=== PATIENT | female | born 1930 | race Caucasian/White ===

== ENCOUNTER 2016-08-01 13:11 | Inpatient (IN) | payer OTHER ==
[2016-08-01] MEDS ORDERED: ALBUTEROL NEB INH ONE (13:24)
[2016-08-01] MEDS ORDERED: NS 500 ML IV ONE (13:25)
--- NOTE | 2016-08-01 13:28 | PROVIDER DOCUMENTATION ---
HPI-General Adult - General Source: patient, EMS - History of Present Illness -Gen Adult Nature of Presenting Problems: Pt is 86 y/o F presents to the ED with cough and weakness. Pt states being recently diagnosed with flu. Pt states she is in a care home for rehab. EMS states Pt's family wanted Pt sent to ED due to no improvement after two days of meds for flu and Pt's family felt like she was not receiving adequate breathing treatments at care home. Location of Pain/Injury: reports: generalized Pain Radiation: reports: no radiation Quality of Pain: reports: aching Severity: reports: mild Onset/Duration: reports: 2 days ago Timing: reports: still present Context/Activities at Onset: reports: light activity Modifying Factors: improves with: nothing Associated Symptoms: reports: cough, weakness. denies: anxiety, arm pain, back/ neck pain, chest pain, constipation, diaphoresis, diarrhea, dizziness, EENT symptoms, fatigue, fever/chills, genitourinary problems, headaches, heartburn, joint pain, loss of appetite, malaise, muscle aches, sinus congestion/drainage, nausea, rash, seizure, shortness of breath, sensory/motor loss, pain with inspiration, swelling/mass in abdomen, syncope, vomiting, trouble walking Similar Symptoms Previously?: Yes Recently seen or treated by another doctor?: Yes <Stella Lucio - Last Filed: 08/01/16 16:45> <Brennon Blackwood Jr - Last Filed: 08/15/16 04:30> - General Stated Complaint: INFLUENZA Time Seen by Provider: 08/01/16 13:15 Allergies/Adverse Reactions: Patient Allergies Allergy/AdvReac Type Severity Reaction Status Date / Time aspirin Allergy Severe arrythmia Verified 08/01/16 13:25 clopidogrel bisulfate * Allergy Severe HIVES Verified 08/01/16 13:25 [From Plavix] pregabalin [From Lyrica] Allergy Severe confusion Verified 08/01/16 13:25 ciprofloxacin [From Cipro] Allergy Intermediate bad dreams Verified 08/01/16 13: 25 ciprofloxacin HCl * Allergy Intermediate bad dreams Verified 08/01/16 13:25 [From Cipro] hydromorphone HCl * Allergy Intermediate VOMITING Verified 08/01/16 13:25 [From Dilaudid] meperidine HCl * Allergy Intermediate VOMITING Verified 08/01/16 13:25 [From Demerol] nitrofurantoin Allergy Intermediate ITCHING Verified 08/01/16 13:25 [From Macrobid] nitrofurantoin Allergy Intermediate ITCHING Verified 08/01/16 13:25 macrocrystalline * [From Macrobid] acetaminophen [From Lortab] AdvReac NAUSEA Verified 08/01/16 13:25 hydrocodone bitartrate * AdvReac NAUSEA Verified 08/01/16 13:25 [From Lortab] latex AdvReac RASH Verified 08/01/16 13:25 Home Medications: Home Medication List Medication Instructions Recorded Confirmed Last Taken Type Benazepril HCl [Lotensin] 40 mg PO HS 04/05/13 08/01/16 07/08/16 20:00 History Donepezil [Aricept] 5 mg PO QAM 04/05/13 08/01/16 07/08/16 10:00 History Levothyroxine [Synthroid] 88 microgm PO DAILY 04/05/13 08/01/16 07/08/16 10:00 History Metformin [Glucophage] 500 mg PO BID CC 04/05/13 08/01/16 07/08/16 20:00 History Quetiapine [Seroquel] 50 mg PO QHS 04/05/13 08/01/16 07/08/16 20:00 History Sertraline HCl [Zoloft] 100 mg PO DAILY 04/05/13 08/01/16 07/08/16 10:00 History Oxybutynin [Ditropan] 5 mg PO BID 02/23/14 08/01/16 07/08/16 20:00 History Carvedilol 3.125 mg PO BID 06/14/15 08/01/16 07/08/16 20:00 History Cholecalciferol (Vitamin D3) 2,000 unit PO HS 06/14/15 08/01/16 07/08/16 20:00 History [Vitamin D3] Vit A/C/E AC/Znox/Cupric Oxide 1 each PO DAILY 09/26/15 08/01/16 07/08/16 10:00 History [Eye Vitamin-Minerals Tablet] Albuterol Sulfate Inhaler 2 puff INH [id number] PRN #1 inhaler 08/10/16 Unknown Rx [Ventolin Hfa] Amlodipine [Norvasc] 10 mg PO DAILY #0 tablet 08/10/16 Unknown Rx Review of Systems - Adult - REVIEW OF SYSTEMS - ADULT Constitutional: denies: chills, fever Eyes: denies: blurred vision, double vision Ears, Nose, Mouth & Throat: denies: ear pain, nose pain, throat pain Cardiovascular: reports: irregular heart rate (tamela). denies: chest pain, heart murmur Respiratory: reports: cough, wheezing. denies: shortness of breath Gastrointestinal: denies: abdominal pain, diarrhea, nausea, vomiting Genitourinary: denies: dysuria, hematuria Musculoskeletal: denies: bone pain, joint pain, neck pain Integumentary: denies: hives, itching Neurological: denies: dizziness/vertigo, headache/migraines Psychiatric: reports: no symptoms reported Endocrine: reports: no symptoms reported Hematologic/Lymphatic: reports: no symptoms reported Allergic/Immunologic: reports: no symptoms reported All Other Systems: Reviewed and Negative <Stella Lucio - Last Filed: 08/01/16 16:45> Past History - Adult - PAST MEDICAL HISTORY-ADULT Review of Records: reports: Nursing Assessment Review, Medications Reviewed, Social history reviewed & non-contributory. Major Childhood Illnesses: reports: denies history Cardiovascular: reports: HTN (controlled with meds x40 yrs), hyperlipidemia Respiratory: reports: denies history Gastrointestinal: reports: GERD Obstetrical/Gynecological: reports: denies history Genitourinary: reports: denies history Musculoskeletal: reports: denies history Neurological: reports: dementia Endocrine/Immune: reports: Diabetes (diabetic neuropathy), thyroid disorder ( hypo) Other Conditions: reports: denies history - PRIOR SURGERIES/PROCEDURES Surgical/Procedure History: reports: hysterectomy, other (interstim implant, breast sx) - IMMUNIZATION STATUS Childhood Immunizations: See Nurse Assessment Flu Vaccine: See Nurse Assessment - FAMILY HISTORY Family History: reviewed, not pertinent - SOCIAL HISTORY Smoking: denies Substance Use: denies Living Situation: care facility (care home for rehab) <Stella Lucio - Last Filed: 08/01/16 16:45> Physical Exam-General - PHYSICAL EXAM-ADULT Initial Vital Signs Reviewed: Yes - CONSTITUTIONAL General Appearance: alert, mild distress, slow to respond. negative: appears well (ill in appearance) - EYES Eyes: PERRL/EOMI, pink conjunctivae, fundi clear, no AV nicking - NECK Neck: non-tender, full range of motion, supple, normal inspection - RESPIRATORY Respiratory: chest non-tender, normal breath sounds, no pleuratic chest pain, no respiratory distress, no accessory muscle use, wheezing (expiratory) - CARDIOVASCULAR Cardiovascular: normal peripheral pulses, no edema, no gallop, no JVD, no murmur , bradycardia - GASTROINTESTINAL (ABDOMEN) Abdominal Exam: normal bowel sounds, non tender, soft, no organomegaly, no pulsatile mass - LYMPHATIC Lymphatic: no adenopathy - MUSCULOSKELETAL Back Exam: normal inspection, no CVA tenderness, no vertebral tenderness Extremity: normal range of motion, non-tender, normal inspection, no pedal edema , no calf tenderness - SKIN Integumentary: normal color, normal turgor, warm/dry - NEUROLOGIC 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, grossly normal, no motor/sensory deficits - PSYCHIATRIC Psych/Mental Status: normal thought content, normal thought process, oriented x 3 <Stella Lucio - Last Filed: 08/01/16 16:45> Progress - PLAN OF CARE/RESULTS Progress/Plan/Lab Results: Orders Category Date Time Status 0.9% Sodium Chloride Inj [Ns] 500 ml Med 08/01/16 13:25 Active IV 999 mls/hr Albuterol [Albuterol Neb] Med 08/01/16 13:24 Discontinued 2.5 mg INH NOW ONE Aerosol Treatments Routine Oth 08/01/16 13:24 Active Aerosol Treatments Stat Oth 08/01/16 13:24 Active Vital Signs - 24 hr 08/01/16 13:19 Temperature 97.9 F Pulse Rate 53 L Respiratory 18 Rate Blood Pressure 153/93 O2 Sat by Pulse 97 Oximetry - CONSULTS/PCP/HOSPITALIST Notification #1 *Consult/PCP/Hospitalist*: Dr. Rogers Time Discussed: 16:46 (Dr. Rogers accepted admit ) Reason/Comments: Dr. Blackwood consulted with Dr. Rogers about admit of Pt Consult Disposition: Admit <Stella Lucio - Last Filed: 08/01/16 16:45> - PLAN OF CARE/RESULTS Progress/Plan/Lab Results: Laboratory Tests 08/01/16 08/01/16 08/01/16 16:55 16:55 22:56 WBC 5.18 RBC 4.28 Hgb 11.5 L Hct 34.8 L MCV 81.3 MCH 26.9 L MCHC 33.0 RDW Std Deviation 15.2 H Plt Count 193 MPV 10.1 Immature Gran % (Auto) 0.0 Neut % (Auto) 51.2 Lymph % (Auto) 32.4 [place] % (Auto) 11.0 H Eos % (Auto) 4.4 Baso % (Auto) 1.0 H Immature Gran # (Auto) 0.00 Neut # (Auto) 2.65 Lymph # (Auto) 1.68 [place] # (Auto) 0.57 Eos # (Auto) 0.23 Baso # (Auto) 0.05 Specimen Type Sample Site pH pCO2 pO2 HCO3 Base Excess Oxyhemoglobin ABG O2 Sat (Calculated) ABG O2 Saturation ABG Carboxyhemoglobin ABG Methemoglobin Deniz Test A-a O2 Difference Total Hemoglobin Lactate Liter Flow Blood Gas Modality FiO2 % Sodium 133 L Potassium 3.5 Chloride 93 L Carbon Dioxide 28 Anion Gap 12 BUN 33 H Creatinine 0.9 Estimated GFR/1.73 m2 59 BUN/Creatinine Ratio 37 Glucose 107 H POC Glucose 156 H Calculated Osmolality 274 Calcium 8.8 Total Bilirubin 0.22 AST 14 ALT 11 Alkaline Phosphatase 75 Total Protein 6.2 L Albumin 3.5 Globulin 2.7 Albumin/Globulin Ratio 1.3 08/02/16 08/02/16 08/02/16 05:50 06:35 06:41 WBC 6.08 RBC 3.96 L Hgb 10.9 L Hct 32.6 L MCV 82.3 MCH 27.5 MCHC 33.4 RDW Std Deviation 15.0 H Plt Count 203 MPV 10.6 H Immature Gran % (Auto) 0.3 Neut % (Auto) 55.7 Lymph % (Auto) 28.9 [place] % (Auto) 10.7 H Eos % (Auto) 3.9 Baso % (Auto) 0.5 Immature Gran # (Auto) 0.02 Neut # (Auto) 3.38 Lymph # (Auto) 1.76 [place] # (Auto) 0.65 H Eos # (Auto) 0.24 Baso # (Auto) 0.03 Specimen Type ARTERIAL Sample Site R RADIAL pH 7.45 pCO2 39 pO2 125 H HCO3 27.2 H Base Excess 2.9 Oxyhemoglobin 96.6 ABG O2 Sat (Calculated) 15.0 ABG O2 Saturation 99.5 ABG Carboxyhemoglobin 1.20 ABG Methemoglobin 1.7 H Deniz Test YES A-a O2 Difference 54.0 Total Hemoglobin 10.9 L Lactate 1.10 Liter Flow 3.0 Blood Gas Modality CANNULA FiO2 % 32.0 Sodium Potassium Chloride Carbon Dioxide Anion Gap BUN Creatinine Estimated GFR/1.73 m2 BUN/Creatinine Ratio Glucose POC Glucose 130 H Calculated Osmolality Calcium Total Bilirubin AST ALT Alkaline Phosphatase Total Protein Albumin Globulin Albumin/Globulin Ratio 08/02/16 08/02/16 08/02/16 10:44 15:54 20:41 WBC RBC Hgb Hct MCV MCH MCHC RDW Std Deviation Plt Count MPV Immature Gran % (Auto) Neut % (Auto) Lymph % (Auto) [place] % (Auto) Eos % (Auto) Baso % (Auto) Immature Gran # (Auto) Neut # (Auto) Lymph # (Auto) [place] # (Auto) Eos # (Auto) Baso # (Auto) Specimen Type Sample Site pH pCO2 pO2 HCO3 Base Excess Oxyhemoglobin ABG O2 Sat (Calculated) ABG O2 Saturation ABG Carboxyhemoglobin ABG Methemoglobin Deniz Test A-a O2 Difference Total Hemoglobin Lactate Liter Flow Blood Gas Modality FiO2 % Sodium Potassium Chloride Carbon Dioxide Anion Gap BUN Creatinine Estimated GFR/1.73 m2 BUN/Creatinine Ratio Glucose POC Glucose 146 H 136 H 123 H Calculated Osmolality Calcium Total Bilirubin AST ALT Alkaline Phosphatase Total Protein Albumin Globulin Albumin/Globulin Ratio 08/03/16 08/03/16 08/03/16 06:03 11:16 15:40 WBC RBC Hgb Hct MCV MCH MCHC RDW Std Deviation Plt Count MPV Immature Gran % (Auto) Neut % (Auto) Lymph % (Auto) [place] % (Auto) Eos % (Auto) Baso % (Auto) Immature Gran # (Auto) Neut # (Auto) Lymph # (Auto) [place] # (Auto) Eos # (Auto) Baso # (Auto) Specimen Type Sample Site pH pCO2 pO2 HCO3 Base Excess Oxyhemoglobin ABG O2 Sat (Calculated) ABG O2 Saturation ABG Carboxyhemoglobin ABG Methemoglobin Deniz Test A-a O2 Difference Total Hemoglobin Lactate Liter Flow Blood Gas Modality FiO2 % Sodium Potassium Chloride Carbon Dioxide Anion Gap BUN Creatinine Estimated GFR/1.73 m2 BUN/Creatinine Ratio Glucose POC Glucose 112 H 119 H 134 H Calculated Osmolality Calcium Total Bilirubin AST ALT Alkaline Phosphatase Total Protein Albumin Globulin Albumin/Globulin Ratio 08/03/16 08/03/16 08/04/16 21:01 22:09 05:57 WBC RBC Hgb Hct MCV MCH MCHC RDW Std Deviation Plt Count MPV Immature Gran % (Auto) Neut % (Auto) Lymph % (Auto) [place] % (Auto) Eos % (Auto) Baso % (Auto) Immature Gran # (Auto) Neut # (Auto) Lymph # (Auto) [place] # (Auto) Eos # (Auto) Baso # (Auto) Specimen Type Sample Site pH pCO2 pO2 HCO3 Base Excess Oxyhemoglobin ABG O2 Sat (Calculated) ABG O2 Saturation ABG Carboxyhemoglobin ABG Methemoglobin Deniz Test A-a O2 Difference Total Hemoglobin Lactate Liter Flow Blood Gas Modality FiO2 % Sodium Potassium Chloride Carbon Dioxide Anion Gap BUN Creatinine Estimated GFR/1.73 m2 BUN/Creatinine Ratio Glucose POC Glucose 229 H D 152 H 120 H Calculated Osmolality Calcium Total Bilirubin AST ALT Alkaline Phosphatase Total Protein Albumin Globulin Albumin/Globulin Ratio 08/04/16 08/04/16 08/04/16 11:27 15:39 21:36 WBC RBC Hgb Hct MCV MCH MCHC RDW Std Deviation Plt Count MPV Immature Gran % (Auto) Neut % (Auto) Lymph % (Auto) [place] % (Auto) Eos % (Auto) Baso % (Auto) Immature Gran # (Auto) Neut # (Auto) Lymph # (Auto) [place] # (Auto) Eos # (Auto) Baso # (Auto) Specimen Type Sample Site pH pCO2 pO2 HCO3 Base Excess Oxyhemoglobin ABG O2 Sat (Calculated) ABG O2 Saturation ABG Carboxyhemoglobin ABG Methemoglobin Deniz Test A-a O2 Difference Total Hemoglobin Lactate Liter Flow Blood Gas Modality FiO2 % Sodium Potassium Chloride Carbon Dioxide Anion Gap BUN Creatinine Estimated GFR/1.73 m2 BUN/Creatinine Ratio Glucose POC Glucose 158 H 103 125 H Calculated Osmolality Calcium Total Bilirubin AST ALT Alkaline Phosphatase Total Protein Albumin Globulin Albumin/Globulin Ratio 08/05/16 08/05/16 08/05/16 06:29 11:13 16:23 WBC RBC Hgb Hct MCV MCH MCHC RDW Std Deviation Plt Count MPV Immature Gran % (Auto) Neut % (Auto) Lymph % (Auto) [place] % (Auto) Eos % (Auto) Baso % (Auto) Immature Gran # (Auto) Neut # (Auto) Lymph # (Auto) [place] # (Auto) Eos # (Auto) Baso # (Auto) Specimen Type Sample Site pH pCO2 pO2 HCO3 Base Excess Oxyhemoglobin ABG O2 Sat (Calculated) ABG O2 Saturation ABG Carboxyhemoglobin ABG Methemoglobin Deniz Test A-a O2 Difference Total Hemoglobin Lactate Liter Flow Blood Gas Modality FiO2 % Sodium Potassium Chloride Carbon Dioxide Anion Gap BUN Creatinine Estimated GFR/1.73 m2 BUN/Creatinine Ratio Glucose POC Glucose 111 H 143 H 119 H Calculated Osmolality Calcium Total Bilirubin AST ALT Alkaline Phosphatase Total Protein Albumin Globulin Albumin/Globulin Ratio 08/05/16 08/06/16 08/06/16 20:16 06:24 10:18 WBC RBC Hgb Hct MCV MCH MCHC RDW Std Deviation Plt Count MPV Immature Gran % (Auto) Neut % (Auto) Lymph % (Auto) [place] % (Auto) Eos % (Auto) Baso % (Auto) Immature Gran # (Auto) Neut # (Auto) Lymph # (Auto) [place] # (Auto) Eos # (Auto) Baso # (Auto) Specimen Type Sample Site pH pCO2 pO2 HCO3 Base Excess Oxyhemoglobin ABG O2 Sat (Calculated) ABG O2 Saturation ABG Carboxyhemoglobin ABG Methemoglobin Deniz Test A-a O2 Difference Total Hemoglobin Lactate Liter Flow Blood Gas Modality FiO2 % Sodium Potassium Chloride Carbon Dioxide Anion Gap BUN Creatinine Estimated GFR/1.73 m2 BUN/Creatinine Ratio Glucose POC Glucose 131 H 107 H 123 H Calculated Osmolality Calcium Total Bilirubin AST ALT Alkaline Phosphatase Total Protein Albumin Globulin Albumin/Globulin Ratio 08/06/16 08/06/16 08/07/16 16:03 20:19 05:21 WBC RBC Hgb Hct MCV MCH MCHC RDW Std Deviation Plt Count MPV Immature Gran % (Auto) Neut % (Auto) Lymph % (Auto) [place] % (Auto) Eos % (Auto) Baso % (Auto) Immature Gran # (Auto) Neut # (Auto) Lymph # (Auto) [place] # (Auto) Eos # (Auto) Baso # (Auto) Specimen Type Sample Site pH pCO2 pO2 HCO3 Base Excess Oxyhemoglobin ABG O2 Sat (Calculated) ABG O2 Saturation ABG Carboxyhemoglobin ABG Methemoglobin Deniz Test A-a O2 Difference Total Hemoglobin Lactate Liter Flow Blood Gas Modality FiO2 % Sodium Potassium Chloride Carbon Dioxide Anion Gap BUN Creatinine Estimated GFR/1.73 m2 BUN/Creatinine Ratio Glucose POC Glucose 118 H 151 H 101 Calculated Osmolality Calcium Total Bilirubin AST ALT Alkaline Phosphatase Total Protein Albumin Globulin Albumin/Globulin Ratio 08/07/16 08/07/16 08/07/16 06:17 06:17 10:35 WBC 6.68 RBC 3.93 L Hgb 10.4 L Hct 32.7 L MCV 83.2 MCH 26.5 L MCHC 31.8 L RDW Std Deviation 15.2 H Plt Count 344 MPV 9.6 Immature Gran % (Auto) 1.6 H Neut % (Auto) 54.0 Lymph % (Auto) 27.2 [place] % (Auto) 7.9 Eos % (Auto) 8.7 Baso % (Auto) 0.6 Immature Gran # (Auto) 0.11 H Neut # (Auto) 3.60 Lymph # (Auto) 1.82 [place] # (Auto) 0.53 Eos # (Auto) 0.58 Baso # (Auto) 0.04 Specimen Type Sample Site pH pCO2 pO2 HCO3 Base Excess Oxyhemoglobin ABG O2 Sat (Calculated) ABG O2 Saturation ABG Carboxyhemoglobin ABG Methemoglobin Deniz Test A-a O2 Difference Total Hemoglobin Lactate Liter Flow Blood Gas Modality FiO2 % Sodium 137 Potassium 4.7 Chloride 100 Carbon Dioxide 27 Anion Gap 10 BUN 20 Creatinine 0.8 Estimated GFR/1.73 m2 > 60 BUN/Creatinine Ratio 25 Glucose 103 POC Glucose 133 H Calculated Osmolality 277 Calcium 9.4 Total Bilirubin AST ALT Alkaline Phosphatase Total Protein Albumin Globulin Albumin/Globulin Ratio 08/07/16 08/07/16 08/08/16 15:45 21:21 06:40 WBC RBC Hgb Hct MCV MCH MCHC RDW Std Deviation Plt Count MPV Immature Gran % (Auto) Neut % (Auto) Lymph % (Auto) [place] % (Auto) Eos % (Auto) Baso % (Auto) Immature Gran # (Auto) Neut # (Auto) Lymph # (Auto) [place] # (Auto) Eos # (Auto) Baso # (Auto) Specimen Type Sample Site pH pCO2 pO2 HCO3 Base Excess Oxyhemoglobin ABG O2 Sat (Calculated) ABG O2 Saturation ABG Carboxyhemoglobin ABG Methemoglobin Deniz Test A-a O2 Difference Total Hemoglobin Lactate Liter Flow Blood Gas Modality FiO2 % Sodium Potassium Chloride Carbon Dioxide Anion Gap BUN Creatinine Estimated GFR/1.73 m2 BUN/Creatinine Ratio Glucose POC Glucose 97 105 H 105 H Calculated Osmolality Calcium Total Bilirubin AST ALT Alkaline Phosphatase Total Protein Albumin Globulin Albumin/Globulin Ratio 08/08/16 08/08/16 08/08/16 11:07 16:06 20:38 WBC RBC Hgb Hct MCV MCH MCHC RDW Std Deviation Plt Count MPV Immature Gran % (Auto) Neut % (Auto) Lymph % (Auto) [place] % (Auto) Eos % (Auto) Baso % (Auto) Immature Gran # (Auto) Neut # (Auto) Lymph # (Auto) [place] # (Auto) Eos # (Auto) Baso # (Auto) Specimen Type Sample Site pH pCO2 pO2 HCO3 Base Excess Oxyhemoglobin ABG O2 Sat (Calculated) ABG O2 Saturation ABG Carboxyhemoglobin ABG Methemoglobin Deniz Test A-a O2 Difference Total Hemoglobin Lactate Liter Flow Blood Gas Modality FiO2 % Sodium Potassium Chloride Carbon Dioxide Anion Gap BUN Creatinine Estimated GFR/1.73 m2 BUN/Creatinine Ratio Glucose POC Glucose 94 109 H 116 H Calculated Osmolality Calcium Total Bilirubin AST ALT Alkaline Phosphatase Total Protein Albumin Globulin Albumin/Globulin Ratio 08/09/16 08/09/16 08/09/16 06:22 10:53 16:23 WBC RBC Hgb Hct MCV MCH MCHC RDW Std Deviation Plt Count MPV Immature Gran % (Auto) Neut % (Auto) Lymph % (Auto) [place] % (Auto) Eos % (Auto) Baso % (Auto) Immature Gran # (Auto) Neut # (Auto) Lymph # (Auto) [place] # (Auto) Eos # (Auto) Baso # (Auto) Specimen Type Sample Site pH pCO2 pO2 HCO3 Base Excess Oxyhemoglobin ABG O2 Sat (Calculated) ABG O2 Saturation ABG Carboxyhemoglobin ABG Methemoglobin Deniz Test A-a O2 Difference Total Hemoglobin Lactate Liter Flow Blood Gas Modality FiO2 % Sodium Potassium Chloride Carbon Dioxide Anion Gap BUN Creatinine Estimated GFR/1.73 m2 BUN/Creatinine Ratio Glucose POC Glucose 113 H 156 H 92 Calculated Osmolality Calcium Total Bilirubin AST ALT Alkaline Phosphatase Total Protein Albumin Globulin Albumin/Globulin Ratio 08/09/16 08/10/16 08/10/16 21:00 05:54 07:44 WBC RBC Hgb Hct MCV MCH MCHC RDW Std Deviation Plt Count MPV Immature Gran % (Auto) Neut % (Auto) Lymph % (Auto) [place] % (Auto) Eos % (Auto) Baso % (Auto) Immature Gran # (Auto) Neut # (Auto) Lymph # (Auto) [place] # (Auto) Eos # (Auto) Baso # (Auto) Specimen Type Sample Site pH pCO2 pO2 HCO3 Base Excess Oxyhemoglobin ABG O2 Sat (Calculated) ABG O2 Saturation ABG Carboxyhemoglobin ABG Methemoglobin Deniz Test A-a O2 Difference Total Hemoglobin Lactate Liter Flow Blood Gas Modality FiO2 % Sodium Potassium Chloride Carbon Dioxide Anion Gap BUN Creatinine Estimated GFR/1.73 m2 BUN/Creatinine Ratio Glucose POC Glucose 99 117 H 119 H Calculated Osmolality Calcium Total Bilirubin AST ALT Alkaline Phosphatase Total Protein Albumin Globulin Albumin/Globulin Ratio 08/10/16 11:24 WBC RBC Hgb Hct MCV MCH MCHC RDW Std Deviation Plt Count MPV Immature Gran % (Auto) Neut % (Auto) Lymph % (Auto) [place] % (Auto) Eos % (Auto) Baso % (Auto) Immature Gran # (Auto) Neut # (Auto) Lymph # (Auto) [place] # (Auto) Eos # (Auto) Baso # (Auto) Specimen Type Sample Site pH pCO2 pO2 HCO3 Base Excess Oxyhemoglobin ABG O2 Sat (Calculated) ABG O2 Saturation ABG Carboxyhemoglobin ABG Methemoglobin Deniz Test A-a O2 Difference Total Hemoglobin Lactate Liter Flow Blood Gas Modality FiO2 % Sodium Potassium Chloride Carbon Dioxide Anion Gap BUN Creatinine Estimated GFR/1.73 m2 BUN/Creatinine Ratio Glucose POC Glucose 130 H Calculated Osmolality Calcium Total Bilirubin AST ALT Alkaline Phosphatase Total Protein Albumin Globulin Albumin/Globulin Ratio <Brennon Blackwood Jr - Last Filed: 08/15/16 04:30> Departure - Departure Time of Disposition Order: 16:45 Certified Medical Emergency: Emergent <Stella Lucio - Last Filed: 08/01/16 16:45> <Brennon Blackwood Jr - Last Filed: 08/15/16 04:30> - Departure DIAGNOSIS: Influenza A, Respiratory distress Disposition: ADMITTED INPATIENT 09 Condition: Stable Attestation - Scribe Verification/Attestation Scribe:: Stella Lucio Acting as Scribe for:: Brennon Blackwood Jr Scribe documention review:: This chart was documented by a scribe and accurately reflects the service the provider performed and the decisions made by the provider. <Stella Lucio - Last Filed: 08/01/16 16:45> Physician Attestation
[2016-08-01] MEDS ORDERED: NS 1,000 ML IV SCH (17:00)
[2016-08-01 17:05] LABS: MANUAL DIFF NEEDED? NO
[2016-08-01 17:08] LABS: EOS# 0.23 X1000 (0.0-0.7); EOS% 4.4 % (0.0-10.0); HEMATOCRIT 34.8 % (37.0-47.0); HEMOGLOBIN 11.5 g/dL (12.0-16.0); LYMPH# 1.68 X1000 (1.2-3.4); LYMPH% 32.4 % (20.5-51.1); MCH 26.9 PG (27-31); MCV 81.3 FL (81-99); MONO# 0.57 X1000 (0.11-0.59); MPV 10.1 FL (7.4-10.4); NEUT% 51.2 % (42.2-75.2); PLT 193 X1000 (130-400); RBC 4.28 XMIL (4.2-5.4)
[2016-08-01 17:28] LABS: ALBUMIN 3.5 g/dL (3.5-5.0); CALCIUM 8.8 mg/dL (8.8-10.2); POTASSIUM 3.5 mmol/L (3.5-5.1); TOTAL BILIRUBIN 0.22 mg/dL (0.20-1.00); TOTAL PROTEIN 6.2 g/dL (6.3-8.3)
[2016-08-01] MEDS ORDERED: TESSALON PO ONE (17:48)
--- NOTE | 2016-08-01 18:03 | Diag Imaging Result Document ---
PROCEDURE NAME: CHEST-1 VIEW - 08/01/2016 CHEST SINGLE VIEW: COMPARISON: Compared to 07/30/2016. FINDINGS: The lungs are well expanded. The heart is not enlarged. The vessels are not distended. No consolidation. No pleural effusions identified. IMPRESSION: Negative chest.
[2016-08-01] MEDS: PROTONIX IV SCH (19:05)
[2016-08-01] MEDS ORDERED: APRESOLINE IV PRN (19:05)
[2016-08-01] MEDS: LOVENOX SUBQ SCH (19:05)
[2016-08-01] MEDS: ROCEPHIN 1 GM/NS 50 ML IV SCH (19:40)
[2016-08-01] MEDS: TAMIFLU PO SCH ×2 (19:56→21:22)
[2016-08-01] MEDS: DUONEB (A & A) INH PRN (20:00)
[2016-08-01] MEDS ORDERED: TAMIFLU PO SCH (21:00)
[2016-08-01] MEDS: ZITHROMAX 500 MG/NS 250 ML IV SCH (21:10)
[2016-08-01] MEDS: CLINIMIX E 4.25%-5% SOLUTION 1,000 ML IV SCH (21:10)
--- NOTE | 2016-08-01 21:15 | HISTORY AND PHYSICAL ---
CHIEF COMPLAINT: Cough, shortness of breath, wheezing, declining of activities of daily living, fever. HISTORY OF PRESENT ILLNESS: She is an 86-year-old, white female who has been living in a senior living for convalescence since last admission. Apparently she was seen twice in the ER. Family seems to not be happy with the care in the senior living. She started having a fever, coughing and wheezing. Outpatient workup revealed influenza A infection and started on Tamiflu. Patient failed to improve with high blood pressure, altered mental status and basically admitted to the hospital with influenza A infection with bronchitis associated with altered mental status. She was started on Tamiflu. She also needs a prophylactic IV antibiotic because of the bronchitis. The patient completely obtunded in the emergency room, not able to get any history. I discussed this with the patient's family members. As a result, hospital admission was warranted. PAST MEDICAL HISTORY: Kidney stones, dementia, diabetes, hypertension, hyperlipidemia, hypothyroidism, polyneuropathy, incontinence of urine, vitamin B12 deficiency. PAST SURGICAL HISTORY: Bunion surgery on both feet, benign breast lumpectomy, left cataract surgery, cholecystectomy, left kidney stone extraction, hysterectomy, L4 kyphoplasty, removal of InterStim sphincter, back surgery. MEDICATIONS: Zoloft 100 daily, Seroquel 50 at bedtime, benazepril 40 daily, Aricept 5 mg daily, Cardizem 180 daily, Synthroid 88 mcg daily, metformin 500 p.o. b.i.d., Ditropan 5 mg p.o. b.i.d., Coreg 3.125 p.o. b.i.d., vitamin D3 2000 units at bedtime, Tylenol as needed. ALLERGIES: Reported to aspirin, Plavix, steroids, Lyrica, Cipro, Dilaudid, Demerol. SOCIAL HISTORY: . Lives in [place]. No smoking. No alcohol. Two children. FAMILY HISTORY: Father of suicide at 60. Mom of heart disease. HEALTH MAINTENANCE: Declined the vaccinations. REVIEW OF SYSTEMS: Unable to obtain because of confusion. PHYSICAL EXAMINATION: VITAL SIGNS: Blood pressure is high, heart rate is 50. GENERAL: Obtunded. She is arousable. Pupils equal, reactive to light. She has a face mask from the recent flu. Unable to see the throat. NECK: Supple. No lymphadenopathy. No goiter. CHEST: Bilateral wheezing. HEART: Sounds are very distant. ABDOMEN: Belly is soft, obese, nontender. Good bowel sounds. No peripheral edema, cyanosis or clubbing. NEUROLOGIC EXAMINATION: Nonfocal. INVESTIGATIONS: White cell count 5, hematocrit 34, platelets 193,000. SMA 7, sodium 133, potassium 3.5, chloride 93, BUN 33, creatinine 0.9, glucose 107. LFTs were normal. Influenza A positive. Chest x-ray reported negative. ASSESSMENT AND PLAN: 1. An 86-year-old, white female, admitted to the hospital basically for altered mental status with influenza A infection with bronchitis. Plan is Tamiflu bronchodilators and consider prophylactic antibiotics with Rocephin and Zithromax. 2. DVT GI prophylaxis with Lovenox and Protonix respectively. 3. Reconcile home medicines. 4. Hypertension and slow heart rate. Hydralazine as needed and physical therapy consultation. 5. We will follow up on the clinical course. MCKENNA
[2016-08-01] MEDS: COREG PO SCH (21:22)
[2016-08-01] MEDS: LOTENSIN PO SCH (21:22)
[2016-08-01] MEDS: VITAMIN D PO SCH (21:22)
[2016-08-01] MEDS: SEROQUEL PO SCH (21:22)
[2016-08-01] MEDS: DITROPAN PO SCH (21:22)
[2016-08-01] MEDS ORDERED: MIRALAX PO ONE (23:28)
[2016-08-01] MEDS ORDERED: ZOFRAN ODT PO PRN (23:30)
[2016-08-01] MEDS: HUMALOG SUBQ SCH (23:58)
[2016-08-02] MEDS: DUONEB (A & A) INH PRN ×2 (03:48→21:00)
[2016-08-02 06:02] LABS: ALLEN TEST YES; BE 2.9 mmoll (-3.0-3.0); BLOOD TYPE ARTERIAL; DRAW SITE R RADIAL; METHB 1.7 % (0.0-1.5); PCO2(98.6) 39 mmHg (35-45); PO2(98.6) 125 mmHg (60-100); SAMPLE BLOOD; SAO2 99.5 % (95.0-100.0); THB 10.9 g/dL (11.5-17.4); pH(98.6) 7.45 (7.35-7.45)
[2016-08-02 06:03] LABS: MODALITY CANNULA
[2016-08-02 06:59] LABS: MANUAL DIFF NEEDED? NO
[2016-08-02 07:04] LABS: BASO% 0.5 % (0.0-0.8); EOS# 0.24 X1000 (0.0-0.7); EOS% 3.9 % (0.0-10.0); HEMATOCRIT 32.6 % (37.0-47.0); HEMOGLOBIN 10.9 g/dL (12.0-16.0); IMM GRAN# 0.02 X1000 (0.0-0.04); IMM GRAN% 0.3 % (0.0-0.5); LYMPH# 1.76 X1000 (1.2-3.4); LYMPH% 28.9 % (20.5-51.1); MCH 27.5 PG (27-31); MCHC 33.4 g/dL (33-37); MCV 82.3 FL (81-99); MONO# 0.65 X1000 (0.11-0.59); MONO% 10.7 % (1.7-9.3); MPV 10.6 FL (7.4-10.4); NEUT% 55.7 % (42.2-75.2); PLT 203 X1000 (130-400); RBC 3.96 XMIL (4.2-5.4)
[2016-08-02] MEDS: HUMALOG SUBQ SCH ×4 (07:06→21:38)
[2016-08-02] MEDS ORDERED: MIRALAX PO ONE (08:34)
[2016-08-02] MEDS: SYNTHROID PO SCH (10:16)
[2016-08-02] MEDS: DITROPAN PO SCH ×2 (10:16→21:32)
[2016-08-02] MEDS: ZOLOFT PO SCH (10:16)
[2016-08-02] MEDS: COREG PO SCH ×2 (10:16→21:33)
[2016-08-02] MEDS: CARDIZEM CD PO SCH (10:16)
[2016-08-02] MEDS: GLUCOPHAGE PO SCH ×2 (10:16→16:00)
[2016-08-02] MEDS: TAMIFLU PO SCH ×2 (10:17→21:32)
[2016-08-02] MEDS: DULCOLAX PR PRN (10:17)
[2016-08-02] MEDS: OCUVITE LUTEIN & ZEAXANTHIN PO SCH (10:17)
[2016-08-02] MEDS: ARICEPT PO SCH (10:17)
[2016-08-02] MEDS: CLINIMIX E 4.25%-5% SOLUTION 1,000 ML IV SCH (15:56)
[2016-08-02] MEDS: SODIUM CHLORIDE 0.9% INJ SCH (21:32)
[2016-08-02] MEDS: LOVENOX SUBQ SCH (21:32)
[2016-08-02] MEDS: PROTONIX IV SCH (21:32)
[2016-08-02] MEDS: VITAMIN D PO SCH (21:32)
[2016-08-02] MEDS: ROCEPHIN 1 GM/NS 50 ML IV SCH (21:32)
[2016-08-02] MEDS: SEROQUEL PO SCH (21:33)
[2016-08-02] MEDS: LOTENSIN PO SCH (21:33)
[2016-08-02] MEDS: ZITHROMAX 500 MG/NS 250 ML IV SCH (22:26)
[2016-08-03] MEDS: DUONEB (A & A) INH PRN ×3 (03:43→15:22)
[2016-08-03] MEDS: TAMIFLU PO SCH ×2 (09:02→21:03)
[2016-08-03] MEDS: ZOLOFT PO SCH (09:02)
[2016-08-03] MEDS: CARDIZEM CD PO SCH ×2 (09:02→18:23)
[2016-08-03] MEDS: OCUVITE LUTEIN & ZEAXANTHIN PO SCH (09:02)
[2016-08-03] MEDS: SYNTHROID PO SCH (09:02)
[2016-08-03] MEDS: COREG PO SCH ×2 (09:02→21:03)
[2016-08-03] MEDS: DITROPAN PO SCH ×2 (09:02→21:03)
[2016-08-03] MEDS: GLUCOPHAGE PO SCH ×2 (09:02→18:17)
[2016-08-03] MEDS: ARICEPT PO SCH (09:02)
[2016-08-03] MEDS: MIRALAX PO SCH (11:07)
[2016-08-03] MEDS: NORVASC PO SCH (11:07)
[2016-08-03] MEDS: ROBITUSSIN-DM PO PRN ×3 (11:07→22:01)
[2016-08-03] MEDS: HUMALOG SUBQ SCH ×4 (11:16→22:11)
[2016-08-03] MEDS: CLINIMIX E 4.25%-5% SOLUTION 1,000 ML IV SCH (14:28)
[2016-08-03] MEDS: LOVENOX SUBQ SCH (18:17)
[2016-08-03] MEDS: PROTONIX IV SCH (18:18)
[2016-08-03] MEDS: SODIUM CHLORIDE 0.9% INJ SCH (18:18)
[2016-08-03] MEDS: ROCEPHIN 1 GM/NS 50 ML IV SCH (18:18)
[2016-08-03] MEDS: DULCOLAX PR PRN (18:31)
[2016-08-03] MEDS: VITAMIN D PO SCH (21:03)
[2016-08-03] MEDS: SEROQUEL PO SCH (21:03)
[2016-08-03] MEDS: LOTENSIN PO SCH (21:03)
[2016-08-03] MEDS: ZITHROMAX 500 MG/NS 250 ML IV SCH (22:33)
[2016-08-04] MEDS: HUMALOG SUBQ SCH ×4 (06:12→21:00)
[2016-08-04] MEDS: ROBITUSSIN-DM PO PRN ×2 (09:00→15:25)
[2016-08-04] MEDS ORDERED: PHENERGAN WITH CODEINE LIQUID PO PRN (10:45)
[2016-08-04] MEDS: CLINIMIX E 4.25%-5% SOLUTION 1,000 ML IV SCH (11:36)
[2016-08-04] MEDS: GLUCOPHAGE PO SCH (11:37)
[2016-08-04] MEDS: DITROPAN PO SCH ×2 (11:37→20:46)
[2016-08-04] MEDS: MIRALAX PO SCH (11:37)
[2016-08-04] MEDS: COREG PO SCH ×2 (11:37→20:47)
[2016-08-04] MEDS: SYNTHROID PO SCH (11:37)
[2016-08-04] MEDS: ARICEPT PO SCH (11:37)
[2016-08-04] MEDS: TAMIFLU PO SCH ×2 (11:37→20:47)
[2016-08-04] MEDS: ZOLOFT PO SCH (11:37)
[2016-08-04] MEDS: OCUVITE LUTEIN & ZEAXANTHIN PO SCH (11:37)
[2016-08-04] MEDS: NORVASC PO SCH (11:37)
[2016-08-04] MEDS: DUONEB (A & A) INH PRN (15:07)
[2016-08-04] MEDS: TYLENOL PO PRN (15:25)
[2016-08-04] MEDS: PROTONIX IV SCH (20:46)
[2016-08-04] MEDS: SEROQUEL PO SCH (20:46)
[2016-08-04] MEDS: ROCEPHIN 1 GM/NS 50 ML IV SCH (20:46)
[2016-08-04] MEDS: VITAMIN D PO SCH (20:47)
[2016-08-04] MEDS: LOTENSIN PO SCH (20:47)
[2016-08-04] MEDS: LOVENOX SUBQ SCH (20:52)
[2016-08-05] MEDS: ZITHROMAX 500 MG/NS 250 ML IV SCH ×2 (01:35→22:06)
[2016-08-05] MEDS: TYLENOL PO PRN (01:40)
[2016-08-05] MEDS: CLINIMIX E 4.25%-5% SOLUTION 1,000 ML IV SCH ×2 (04:07→22:06)
[2016-08-05] MEDS: HUMALOG SUBQ SCH ×4 (06:38→22:05)
[2016-08-05] MEDS: DUONEB (A & A) INH PRN ×2 (09:12→15:41)
[2016-08-05] MEDS: NORVASC PO SCH (09:17)
[2016-08-05] MEDS: SYNTHROID PO SCH (09:17)
[2016-08-05] MEDS: OCUVITE LUTEIN & ZEAXANTHIN PO SCH (09:17)
[2016-08-05] MEDS: DITROPAN PO SCH ×2 (09:17→22:04)
[2016-08-05] MEDS: ZOLOFT PO SCH (09:17)
[2016-08-05] MEDS: ARICEPT PO SCH (09:17)
[2016-08-05] MEDS: TAMIFLU PO SCH ×2 (09:17→22:04)
[2016-08-05] MEDS: COREG PO SCH ×2 (09:18→22:04)
[2016-08-05] MEDS: GLUCOPHAGE PO SCH ×2 (09:18→18:57)
[2016-08-05] MEDS: MIRALAX PO SCH (09:18)
[2016-08-05] MEDS: SEROQUEL PO SCH (22:04)
[2016-08-05] MEDS: LOTENSIN PO SCH (22:04)
[2016-08-05] MEDS: VITAMIN D PO SCH (22:04)
[2016-08-05] MEDS: SODIUM CHLORIDE 0.9% INJ SCH (22:05)
[2016-08-05] MEDS: LOVENOX SUBQ SCH (22:05)
[2016-08-05] MEDS: PROTONIX IV SCH (22:05)
[2016-08-05] MEDS: ROCEPHIN 1 GM/NS 50 ML IV SCH (22:05)
--- NOTE | 2016-08-06 02:57 | PROGRESS NOTE ---
DATE: 08/04/2016 SUBJECTIVE: Ms. Orellana is doing fairly well. She has influenza A. She is coughing persistently. She has been on azithromycin and Rocephin. I am going to add Tamiflu on top of this for symptomatic relief and give her some Phenergan with codeine cough medicine. -5
--- NOTE | 2016-08-06 03:03 | PROGRESS NOTE ---
DATE: 08/05/2016 Mrs. Orellana is still not feeling well. She is still having persistent cough. Vital signs are stable. She feels weak. She is on Clinimix as well as IV antibiotics and Tamiflu, and cough syrup. Overall condition is unchanged. -2
[2016-08-06] MEDS: HUMALOG SUBQ SCH ×4 (06:51→21:54)
[2016-08-06] MEDS: DITROPAN PO SCH ×2 (08:41→21:35)
[2016-08-06] MEDS: GLUCOPHAGE PO SCH ×3 (08:41→16:47)
[2016-08-06] MEDS: ZOLOFT PO SCH (08:41)
[2016-08-06] MEDS: COREG PO SCH ×2 (08:41→21:35)
[2016-08-06] MEDS: ARICEPT PO SCH (08:41)
[2016-08-06] MEDS: OCUVITE LUTEIN & ZEAXANTHIN PO SCH (08:41)
[2016-08-06] MEDS: NORVASC PO SCH (08:41)
[2016-08-06] MEDS: TAMIFLU PO SCH ×2 (08:42→21:35)
[2016-08-06] MEDS: MIRALAX PO SCH (08:42)
[2016-08-06] MEDS: SYNTHROID PO SCH (08:42)
[2016-08-06] MEDS: DUONEB (A & A) INH PRN ×3 (09:54→19:52)
[2016-08-06] MEDS: CLINIMIX E 4.25%-5% SOLUTION 1,000 ML IV SCH (18:25)
[2016-08-06] MEDS: VITAMIN D PO SCH (21:34)
[2016-08-06] MEDS: PROTONIX IV SCH (21:34)
[2016-08-06] MEDS: ZITHROMAX 500 MG/NS 250 ML IV SCH (21:34)
[2016-08-06] MEDS: SODIUM CHLORIDE 0.9% INJ SCH (21:34)
[2016-08-06] MEDS: LOVENOX SUBQ SCH (21:34)
[2016-08-06] MEDS: ROCEPHIN 1 GM/NS 50 ML IV SCH (21:35)
[2016-08-06] MEDS: SEROQUEL PO SCH (21:35)
[2016-08-06] MEDS: LOTENSIN PO SCH (21:35)
[2016-08-06] MEDS: ROBITUSSIN-DM PO PRN (21:51)
[2016-08-06] MEDS: TYLENOL PO PRN (22:41)
[2016-08-07] MEDS: HUMALOG SUBQ SCH ×4 (06:19→21:57)
[2016-08-07 06:39] LABS: MANUAL DIFF NEEDED? NO
[2016-08-07 06:53] LABS: BASO% 0.6 % (0.0-0.8); EOS# 0.58 X1000 (0.0-0.7); EOS% 8.7 % (0.0-10.0); HEMATOCRIT 32.7 % (37.0-47.0); HEMOGLOBIN 10.4 g/dL (12.0-16.0); IMM GRAN# 0.11 X1000 (0.0-0.04); IMM GRAN% 1.6 % (0.0-0.5); LYMPH# 1.82 X1000 (1.2-3.4); LYMPH% 27.2 % (20.5-51.1); MCH 26.5 PG (27-31); MCHC 31.8 g/dL (33-37); MCV 83.2 FL (81-99); MONO# 0.53 X1000 (0.11-0.59); MONO% 7.9 % (1.7-9.3); MPV 9.6 FL (7.4-10.4); PLT 344 X1000 (130-400); RBC 3.93 XMIL (4.2-5.4)
[2016-08-07 06:54] LABS: AGAP 10; BUN 20 mg/dL (8-22); CALCIUM 9.4 mg/dL (8.8-10.2); CHLORIDE 100 mmol/L (98-107); COSMO 277; POTASSIUM 4.7 mmol/L (3.5-5.1); SODIUM 137 mmol/L (136-145); TCO2 27 mmol/L (25-35)
[2016-08-07] MEDS: MIRALAX PO SCH (08:39)
[2016-08-07] MEDS: ZOLOFT PO SCH (08:40)
[2016-08-07] MEDS: ARICEPT PO SCH (08:40)
[2016-08-07] MEDS: TAMIFLU PO SCH ×2 (08:40→21:10)
[2016-08-07] MEDS: COREG PO SCH ×2 (08:40→21:11)
[2016-08-07] MEDS: DITROPAN PO SCH ×2 (08:40→21:11)
[2016-08-07] MEDS: GLUCOPHAGE PO SCH ×2 (08:40→17:04)
[2016-08-07] MEDS: NORVASC PO SCH (08:40)
[2016-08-07] MEDS: SYNTHROID PO SCH (08:40)
[2016-08-07] MEDS: OCUVITE LUTEIN & ZEAXANTHIN PO SCH (08:43)
[2016-08-07] MEDS: DUONEB (A & A) INH PRN ×2 (09:58→16:16)
[2016-08-07] MEDS ORDERED: CALMOSEPTINE OINTMENT TOP PRN (14:22)
[2016-08-07] MEDS: CLINIMIX E 4.25%-5% SOLUTION 1,000 ML IV SCH (17:07)
[2016-08-07] MEDS: VITAMIN D PO SCH (21:10)
[2016-08-07] MEDS: LOVENOX SUBQ SCH (21:10)
[2016-08-07] MEDS: TYLENOL PO PRN (21:10)
[2016-08-07] MEDS: LOTENSIN PO SCH (21:10)
[2016-08-07] MEDS: SEROQUEL PO SCH (21:11)
[2016-08-07] MEDS: SODIUM CHLORIDE 0.9% INJ SCH (21:11)
[2016-08-07] MEDS: PROTONIX IV SCH (21:11)
[2016-08-07] MEDS: ZITHROMAX 500 MG/NS 250 ML IV SCH (21:11)
[2016-08-07] MEDS: ROBITUSSIN-DM PO PRN (21:14)
[2016-08-07] MEDS: ROCEPHIN 1 GM/NS 50 ML IV SCH (23:36)
[2016-08-08] MEDS: HUMALOG SUBQ SCH ×4 (06:56→21:57)
[2016-08-08] MEDS: ZOLOFT PO SCH (08:19)
[2016-08-08] MEDS: COREG PO SCH ×2 (08:19→21:42)
[2016-08-08] MEDS: ARICEPT PO SCH (08:20)
[2016-08-08] MEDS: OCUVITE LUTEIN & ZEAXANTHIN PO SCH (08:20)
[2016-08-08] MEDS: MIRALAX PO SCH (08:20)
[2016-08-08] MEDS: GLUCOPHAGE PO SCH ×2 (08:20→16:39)
[2016-08-08] MEDS: DITROPAN PO SCH ×2 (08:20→21:42)
[2016-08-08] MEDS: TAMIFLU PO SCH ×2 (08:20→21:42)
[2016-08-08] MEDS: SYNTHROID PO SCH (08:20)
[2016-08-08] MEDS: NORVASC PO SCH (08:20)
[2016-08-08] MEDS: DUONEB (A & A) INH PRN ×2 (10:05→16:11)
[2016-08-08] MEDS: TYLENOL PO PRN ×2 (11:41→21:49)
[2016-08-08] MEDS: CLINIMIX E 4.25%-5% SOLUTION 1,000 ML IV SCH (11:45)
[2016-08-08] MEDS: LOTENSIN PO SCH (21:41)
[2016-08-08] MEDS: SODIUM CHLORIDE 0.9% INJ SCH (21:42)
[2016-08-08] MEDS: LOVENOX SUBQ SCH (21:42)
[2016-08-08] MEDS: VITAMIN D PO SCH (21:42)
[2016-08-08] MEDS: SEROQUEL PO SCH (21:42)
[2016-08-08] MEDS: PROTONIX IV SCH (21:43)
[2016-08-08] MEDS: ROCEPHIN 1 GM/NS 50 ML IV SCH (21:43)
[2016-08-08] MEDS: ZITHROMAX 500 MG/NS 250 ML IV SCH (21:50)
[2016-08-09] MEDS: HUMALOG SUBQ SCH ×5 (06:51→21:47)
[2016-08-09] MEDS ORDERED: LOTRIMIN 1% CREAM TOP SCH (09:00)
[2016-08-09] MEDS: CLINIMIX E 4.25%-5% SOLUTION 1,000 ML IV SCH (10:31)
[2016-08-09] MEDS: SYNTHROID PO SCH (10:32)
[2016-08-09] MEDS: MIRALAX PO SCH (10:32)
[2016-08-09] MEDS: NORVASC PO SCH (10:32)
[2016-08-09] MEDS: COREG PO SCH ×2 (10:32→20:18)
[2016-08-09] MEDS: ZOLOFT PO SCH (10:32)
[2016-08-09] MEDS: DITROPAN PO SCH ×2 (10:33→20:18)
[2016-08-09] MEDS: TAMIFLU PO SCH ×2 (10:33→20:18)
[2016-08-09] MEDS: ARICEPT PO SCH (10:33)
[2016-08-09] MEDS: OCUVITE LUTEIN & ZEAXANTHIN PO SCH (10:33)
[2016-08-09] MEDS: GLUCOPHAGE PO SCH ×2 (10:33→16:59)
[2016-08-09] MEDS: LOTENSIN PO SCH (20:18)
[2016-08-09] MEDS: SEROQUEL PO SCH (20:18)
[2016-08-09] MEDS: LOVENOX SUBQ SCH (20:18)
[2016-08-09] MEDS: ROCEPHIN 1 GM/NS 50 ML IV SCH (20:18)
[2016-08-09] MEDS: PROTONIX IV SCH (20:18)
[2016-08-09] MEDS: VITAMIN D PO SCH (20:18)
[2016-08-09] MEDS: ZITHROMAX 500 MG/NS 250 ML IV SCH (20:18)
[2016-08-09] MEDS: TYLENOL PO PRN (20:22)
[2016-08-09] MEDS: BREO ELLIPTA 100/25 MCG INH INH SCH (21:05)
[2016-08-10] MEDS: HUMALOG SUBQ SCH (06:00)
[2016-08-10 07:47] VITALS: BP 163/94
[2016-08-10] MEDS: BREO ELLIPTA 100/25 MCG INH INH SCH (08:05)
[2016-08-10] MEDS: ZOLOFT PO SCH (08:42)
[2016-08-10] MEDS: GLUCOPHAGE PO SCH (08:42)
[2016-08-10] MEDS: NORVASC PO SCH (08:42)
[2016-08-10] MEDS: ARICEPT PO SCH (08:42)
[2016-08-10] MEDS: COREG PO SCH (08:42)
[2016-08-10] MEDS: TAMIFLU PO SCH (08:42)
[2016-08-10] MEDS: OCUVITE LUTEIN & ZEAXANTHIN PO SCH (08:42)
[2016-08-10] MEDS: MIRALAX PO SCH (08:42)
[2016-08-10] MEDS: DITROPAN PO SCH (08:42)
[2016-08-10] MEDS: SYNTHROID PO SCH (08:42)
--- NOTE | 2016-08-10 09:43 | DISCHARGE SUMMARY ---
ADMISSION DATE: 08/04/2016 DISCHARGE DATE: 08/10/2016 DISCHARGING DIAGNOSIS: Altered mental status due to influenza A infection. SECONDARY DIAGNOSIS: Shortness of breath due to influenza, bronchitis. OTHER DIAGNOSES: 1. Kidney stones. 2. Dementia. 3. Type 2 diabetes. 4. Hypertension. 5. Hyperlipidemia. 6. Hypothyroidism. 7. Polyneuropathy. 8. Incontinence of urine. 9. Vitamin B12 deficiency. 10. 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 HISTORY OF PRESENT ILLNESS: Please see the H and P that was done on 08/01/2016. In brief, she is an 85-year-old white female, who was admitted from the hospital from rehab with altered mental status, shortness of breath, cough, wheezing, fever. She had a positive flu. Chest x-ray was negative. She was not able to ambulate and wheezing. As a result, a hospital admission was warranted. HOSPITAL COURSE: She was given oxygen, bronchodilators, IV antibiotics and Tamiflu. She was put on isolation. She also developed tinea cruris requiring Lotrimin cream. She was extremely feeble, weak and requiring physical therapy. At the request of the family, she is being transferred to the rehab for convalescence. The patient did improve with maximum benefit during inpatient course. She also has a slow heart rate. I discontinued Cardizem, changed to Norvasc 10 mg once a day. Blood pressure is still running a little bit high, and given hydralazine as needed. DIAGNOSTIC DATA: Labs during this admission as follows. CBC: White cell count 6.6, hematocrit 32, platelets 344,000. SMA 7: Sodium 137, potassium 4.7, chloride 100, BUN 20, creatinine 0.8, calcium 8.4. Chest x-ray negative. DISCHARGE INSTRUCTIONS: She has been discharged to the rehab with the following instructions: 1. Zoloft 100 daily, Seroquel 50 at bedtime, Lotensin 40 daily, Aricept 5 mg daily. Discontinued Cardizem CD 180 once daily because of the slow heart rate. Synthroid 88 mcg daily, metformin 500 p.o. b.i.d., Ditropan 5 mg p.o. b.i.d., Coreg 3.125 p.o. b.i.d., Norvasc 10 mg daily, vitamin D 2000 units daily, Ventolin HFA as needed for wheezing, Lotrimin cream to the groin once daily. 2. Care of the skin, bladder, and bowels and physical therapy. 3. Follow up in my office in 10 days.
== END 2016-08-10 14:07 | DRG 153 ==
LOC: ED 13:11 → UNDOADMOB 17:37 → 3N 17:37 → EDIPHOLD 17:37 → OBSVTOIN 08-04 19:00
PROVIDERS: ADMIT Internal Medicine; ATTEND Internal Medicine
DX: J11.1 Influenza due to unidentified influenza virus with other respiratory manifestations (principal); E11.40 Type 2 diabetes mellitus with diabetic neuropathy, unspecified; F03.90 Unspecified dementia, unspecified severity, without behavioral disturbance, psychotic disturbance, mood disturbance, and anxiety; I10 Essential (primary) hypertension; E78.5 Hyperlipidemia, unspecified; B35.6 Tinea cruris; K21.9 Gastro-esophageal reflux disease without esophagitis; E03.9 Hypothyroidism, unspecified; Z87.442 Personal history of urinary calculi; R32 Unspecified urinary incontinence; E53.8 Deficiency of other specified B group vitamins
CPT/HCPCS: 36415; 71010; 80048; 80053; 82805; 82948; 85025; 94640; 94761; 94799; 96365; 96372; 96375; C9113; G0378; J0456; J0696; J1650; J1815; J7030; J7040; 97110-GP; 97116-GP; 97530-GP; S0164